=== PATIENT | female | born 1955 | race Caucasian/White ===

== ENCOUNTER 2020-04-19 23:28 | Inpatient (IN) | payer MEDICARE ==
[~2020-04-19] VITALS: Ht 160 cm; Wt 75.3 kg
[2020-04-20 01:41] LABS: HEMOGLOBIN 17.9 gm/dl (12.3-15.3); RED BLOOD COUNT 5.97 M/UL (4.00-5.10)
[2020-04-20 02:04] LABS: BUN/CREATININE RATIO 22 (0-10)
[2020-04-20] MEDS ORDERED: LOPRESSOR 50 MG50 MG PO (09:25)
[2020-04-20] MEDS ORDERED: GLIMEPIRIDE4 MG PO (09:27)
[2020-04-20 14:32] LABS: LDH, BODY FLUID 48 U/L; TOTAL PROTEIN, BODY FLUID 0.9 gm/dL
[2020-04-20 14:48] LABS: BODY FLUID SOURCE PLEURAL; RBC (AUTOMATED) 300 (0-100000); WBC (AUTOMATED) 111 (0-500)
[2020-04-20 14:49] LABS: MONONUCLEAR CELLS 77.5 (75-100); POLYMORPHONUCLEAR % 22.5 (0-25)
[2020-04-21 08:42] LABS: RED BLOOD COUNT 6.05 M/UL (4.00-5.10); WHITE BLOOD COUNT 8.4 K/UL (4.5-11.0)
[2020-04-21 09:12] LABS: BUN/CREATININE RATIO 19 (0-10)
--- NOTE | 2020-04-21 15:13 | NUR ---
CHANGED LASIX DRIP FROM 14 MLS/HR TO 10 ML/HR PER DR REQUEST.
--- NOTE | 2020-04-21 17:53 | NUR ---
CHANGED LASIX DRIP RATE BACK TO 14ML/HR PER DR ORDERED. HOLD IT SBP <100.
[2020-04-22 04:34] LABS: HEMOGLOBIN 16.5 gm/dl (12.3-15.3); RED BLOOD COUNT 5.58 M/UL (4.00-5.10); WHITE BLOOD COUNT 8.8 K/UL (4.5-11.0)
[2020-04-22 04:45] LABS: BUN/CREATININE RATIO 17 (0-10)
[2020-04-23 04:53] LABS: HEMOGLOBIN 17.1 gm/dl (12.3-15.3); RED BLOOD COUNT 5.73 M/UL (4.00-5.10)
[2020-04-23 05:22] LABS: BUN/CREATININE RATIO 17 (0-10)
[2020-04-24 04:26] LABS: BUN/CREATININE RATIO 17 (0-10)
[2020-04-24 21:40] LABS: BUN/CREATININE RATIO 22 (0-10)
[2020-04-25 05:13] LABS: BUN/CREATININE RATIO 22 (0-10)
--- NOTE | 2020-04-25 17:12 | NUR ---
PATIENT TAKEN SHOWER WITH DAUGHTER TO ASSIST. CHANGED DRESSING ORDERED. PTIENT YAW WELL
[2020-04-26 03:13] LABS: HEMOGLOBIN 18.7 gm/dl (12.3-15.3); RED BLOOD COUNT 6.29 M/UL (4.00-5.10); WHITE BLOOD COUNT 9.6 K/UL (4.5-11.0)
--- NOTE | 2020-04-26 17:17 | NUR ---
MD INFORMED OF PATIENT GLUCOSE 466 RECHECKED TWICE WTIH A CRITICIAL RESULT EACH TIME.
[2020-04-27 04:01] LABS: HEMOGLOBIN 18.4 gm/dl (12.3-15.3); RED BLOOD COUNT 6.07 M/UL (4.00-5.10)
[2020-04-27 04:03] LABS: WHITE BLOOD COUNT 12.1 K/UL (4.5-11.0)
--- NOTE | 2020-04-27 14:35 | NUR ---
PATIENT WHEN ASSESS BILATERAL LOWER EXTRIMITIES COLD TO TOUCH, PURPLE IN COLOR DENIES NUMBNESS, TINGLING AND PAIN, AWARE OF TOUCH AND ABLE TO WIGGLES BOTH LEFT AND RIGHT TOES. ASSESS PULSE VIA DOPPLER AND FAINT PULSE NOTED. REPORTED THE ABOVE TO AND RECEIVED INSTRUCTIONS TO REPORT TO DR. SANTAMARIA
--- NOTE | 2020-04-27 14:42 | NUR ---
REPORTED TO DR. SANTAMARIA OF THE BILATERAL LOWER EXTRIMITIES CONDITION AND HE STATED HE'S AWARE OF THE PATIENT CONDITON AND THAT CARDIAC CATH WAS PERFORMED BECAUSE OF THE CONDITION OF THE LOWER EXTRIMITIES. HE STATED HE WILL COME UP TO TALK TO THE AFTER A CASE HE IS TAKING CARE OF AT THIS TIME.
[2020-04-28 03:52] LABS: HEMOGLOBIN 18.1 gm/dl (12.3-15.3); RED BLOOD COUNT 6.11 M/UL (4.00-5.10); WHITE BLOOD COUNT 13.4 K/UL (4.5-11.0)
[2020-04-28 04:21] LABS: BUN/CREATININE RATIO 33 (0-10)
--- NOTE | 2020-04-28 05:45 | NUR ---
AT 0540 ON 04/28/20 DRESSING TO RIGHT ANKLE CHANGED ORDERED. 4X4'S SATURATED IN 1/4 DAKIN'S SOLUTION AND APPLIED TO WOUND, THEN WRAPPED IN GAUZE WRAP AND [place] WRAP.
[2020-04-29] MEDS ORDERED: BUMETANIDE1 MG PO (09:02)
[2020-04-29] MEDS ORDERED: LISINOPRIL5 MG PO (09:02)
[2020-04-29] MEDS ORDERED: CLOPIDOGREL75 MG PO (09:02)
[2020-04-29] MEDS ORDERED: HUMALOG 10100 UNITS/ SC (09:02)
[2020-04-29] MEDS ORDERED: ASPIRIN81 MG PO (09:02)
[2020-04-29] MEDS ORDERED: METOPROLOL SUCC25 MG PO (09:02)
[2020-04-29] MEDS ORDERED: ACCU-CHEK1 EACH MC (09:02)
[2020-04-29] MEDS ORDERED: NEEDLE1 EA11 MC (09:02)
[2020-04-29] MEDS ORDERED: ATORVASTATIN CA20 MG PO (09:02)
[2020-04-29] MEDS ORDERED: LANTUS INS100 UTS/M1 SQ (09:02)
[2020-04-29] MEDS ORDERED: AUGMENTIN 875-1 EACH PO (09:05)
[2020-04-29] MEDS ORDERED: NICOTINE PATCH1 EAC1 TD (09:05)
[2020-04-29] MEDS ORDERED: ACCU-CHEK COMB1 EACH MC (09:05)
[2020-04-29 14:52] LABS: BUN/CREATININE RATIO 26 (0-10)
--- NOTE | 2020-04-30 06:04 | NUR ---
DRESSING TO RIGHT ANKLE CHANGED AT 0600 ON 04/30/20 ORDERED. 1/ DAKIN'S SOAKED GAUZE (4X4'S), KERLIX WRAP, AND [place] WRAP APPLIED.
== END 2020-04-30 11:14 | disposition left against medical advice (07) | DRG 286 ==
LOC: ER1 23:28 → CDU 04-20 03:16 → M/S 04-20 03:16
PROVIDERS: Family Medicine; Internal Medicine; Internal Medicine Nephrology; ADMIT Internal Medicine
PROC: B24BZZ4 Ultrasonography of Heart with Aorta, Transesophageal (ICD-10-PCS; 2020-04-20)
PROC: 0W993ZZ Drainage of Right Pleural Cavity, Percutaneous Approach (ICD-10-PCS; 2020-04-20)
PROC: BB4BZZZ Ultrasonography of Pleura (ICD-10-PCS; 2020-04-20)
PROC: B51B1ZZ Fluoroscopy of Right Lower Extremity Veins using Low Osmolar Contrast (ICD-10-PCS; 2020-04-21)
PROC: 4A023N7 Measurement of Cardiac Sampling and Pressure, Left Heart, Percutaneous Approach (ICD-10-PCS; principal; 2020-04-27)
PROC: B2111ZZ Fluoroscopy of Multiple Coronary Arteries using Low Osmolar Contrast (ICD-10-PCS; 2020-04-27)
PROC: B2151ZZ Fluoroscopy of Left Heart using Low Osmolar Contrast (ICD-10-PCS; 2020-04-27)
DX: I11.0 Hypertensive heart disease with heart failure (principal); G93.41 Metabolic encephalopathy; E87.1 Hypo-osmolality and hyponatremia; I31.3 Pericardial effusion (noninflammatory); G93.40 Encephalopathy, unspecified; J90 Pleural effusion, not elsewhere classified; E11.51 Type 2 diabetes mellitus with diabetic peripheral angiopathy without gangrene; I50.43 Acute on chronic combined systolic (congestive) and diastolic (congestive) heart failure; I42.0 Dilated cardiomyopathy; E11.621 Type 2 diabetes mellitus with foot ulcer; Z20.822 Contact with and (suspected) exposure to COVID-19; E78.5 Hyperlipidemia, unspecified; D75.1 Secondary polycythemia; I08.2 Rheumatic disorders of both aortic and tricuspid valves; I25.10 Atherosclerotic heart disease of native coronary artery without angina pectoris; L97.519 Non-pressure chronic ulcer of other part of right foot with unspecified severity; F17.210 Nicotine dependence, cigarettes, uncomplicated; E83.51 Hypocalcemia; E83.42 Hypomagnesemia; E87.6 Hypokalemia; F19.10 Other psychoactive substance abuse, uncomplicated; E66.9 Obesity, unspecified; F32.9 Major depressive disorder, single episode, unspecified; I87.8 Other specified disorders of veins; I50.82 Biventricular heart failure; I27.20 Pulmonary hypertension, unspecified; Z79.4 Long term (current) use of insulin; Z71.6 Tobacco abuse counseling; Z91.14 Patient's other noncompliance with medication regimen; Z68.35 Body mass index [BMI] 35.0-35.9, adult; G47.33 Obstructive sleep apnea (adult) (pediatric)
CPT/HCPCS: 36415; 36600; 71045; 71046; 71260; 73718; 75625; 75710; 80048; 80053; 80061; 80202; 82436; 82533; 82550; 82553; 82803; 82962; 83036; 83605; 83615; 83735; 83874; 83880; 83935; 84132; 84133; 84157; 84295; 84300; 84439; 84443; 84484; 85025; 85027; 85610; 87070; 87077; 87186; 87205; 89051; 93005; 93926; 96374; 97162; 97166; 99285; C1769; J1644; J1650; J1940; J2250; J2405; J2543; J3010; J3370; J3475; J7040; J7050; J7070; Q9963; Q9965; Q9967; U0002

== ENCOUNTER 2020-05-01 10:34 | Emergency (ER) | payer MEDICARE ==
[~2020-05-01 10:34] MED LIST: ACCU-CHEK COMB1 EACH MC; ACCU-CHEK1 EACH MC; ASPIRIN81 MG PO; ATORVASTATIN CA20 MG PO; AUGMENTIN 875-1 EACH PO; BUMETANIDE1 MG PO; CLOPIDOGREL75 MG PO; GLIMEPIRIDE4 MG PO; HUMALOG 10100 UNITS/ SC; LANTUS INS100 UTS/M1 SQ; LISINOPRIL5 MG PO; LOPRESSOR 50 MG50 MG PO; METOPROLOL SUCC25 MG PO; NEEDLE1 EA11 MC; NICOTINE PATCH1 EAC1 TD
== END 2020-05-01 11:52 | disposition left against medical advice (07) ==
LOC: ER1 10:34
DX: Z53.21 Procedure and treatment not carried out due to patient leaving prior to being seen by health care provider (principal)
CPT/HCPCS: 82962

== ENCOUNTER 2020-05-01 17:59 | Emergency (ER) | payer MEDICARE | END 2020-05-01 19:43 | disposition left against medical advice (07) | LOC: ER1 17:59 | DX: Z53.21 Procedure and treatment not carried out due to patient leaving prior to being seen by health care provider (principal) ==

== ENCOUNTER 2020-05-01 22:57 | Emergency (ER) | payer MEDICARE | END 2020-05-01 23:29 | disposition left against medical advice (07) | LOC: ER1 22:57 | DX: Z53.21 Procedure and treatment not carried out due to patient leaving prior to being seen by health care provider (principal) ==

== ENCOUNTER 2020-05-02 08:14 | Emergency (ER) | payer MEDICARE ==
[2020-05-02 09:02] LABS: HEMOGLOBIN 17.8 gm/dl (12.3-15.3); RED BLOOD COUNT 5.83 M/UL (4.00-5.10); WHITE BLOOD COUNT 9.3 K/UL (4.5-11.0)
[2020-05-02 09:27] LABS: BUN/CREATININE RATIO 23 (0-10)
== END 2020-05-02 09:11 | disposition home or self-care (01) ==
LOC: ER1 08:14
PROVIDERS: Physician Assistant
DX: R06.02 Shortness of breath (principal); E87.1 Hypo-osmolality and hyponatremia; L89.619 Pressure ulcer of right heel, unspecified stage; E78.5 Hyperlipidemia, unspecified; I42.9 Cardiomyopathy, unspecified; E11.51 Type 2 diabetes mellitus with diabetic peripheral angiopathy without gangrene; J44.9 Chronic obstructive pulmonary disease, unspecified; I11.0 Hypertensive heart disease with heart failure; I50.9 Heart failure, unspecified; F17.200 Nicotine dependence, unspecified, uncomplicated
CPT/HCPCS: 71045; 80053; 82550; 82553; 82962; 83874; 83880; 84484; 85025; 96374; 99285; J2405